=== PATIENT | male | born 1975 | race Caucasian/White ===

== ENCOUNTER 2018-03-09 00:31 | Emergency (ER) | payer OTHER ==
[~2018-03-09] VITALS: Ht 180.3 cm; Wt 77.1 kg
[2018-03-09 00:45] VITALS: BP 121/70
[2018-03-09] MEDS ORDERED: TDAP [DIPH/PERTUSSIS/TET] 0.5 ML VIAL IM ONE ×2 (01:06→01:30)
== END 2018-03-09 01:26 | disposition home or self-care (01) ==
LOC: ER 00:31
DX: S80.262A Insect bite (nonvenomous), left knee, initial encounter (principal); Z91.010 Allergy to peanuts; Z60.2 Problems related to living alone; W57.XXXA Bitten or stung by nonvenomous insect and other nonvenomous arthropods, initial encounter; Y93.89 Activity, other specified; Y92.89 Other specified places as the place of occurrence of the external cause; Y99.8 Other external cause status
CPT/HCPCS: 90471; 90715; 99283; A4606; Z7610